=== PATIENT | female | born 1940 | race Caucasian/White ===

== ENCOUNTER 2017-03-01 00:07 | Emergency (ER) | payer MEDICARE, OTHER ==
--- NOTE | 2017-03-01 00:55 | C.PDOC ---
History Of Present Illness Patient took a percocet for her right back /flank pain and developed nausea, vomiting and abdominal pain. feels slightly dizzy. No slurred speech or neurological weakness., Time Seen by Provider: 03/01/17 00:55 Chief Complaint (Nursing): Dizziness/Lightheaded History Per: Patient, Family History/Exam Limitations: no limitations Onset/Duration Of Symptoms: Hrs Current Symptoms Are (Timing): Still Present Severity: Moderate Pain Scale Rating Of: 4 Recent travel outside of the [place]: No Additional History Per: Family - Symptoms Of CVA Recent Aspirin Use: No Current Coumadin Use?: No Recent Head Trauma: No Past Medical History Reviewed: Historical Data, Nursing Documentation, Vital Signs Vital Signs: Last Vital Signs Temp 98.1 F 03/01/17 03:59 Pulse 62 03/01/17 03:59 Resp 16 03/01/17 03:59 BP 163/76 H 03/01/17 03:59 Pulse Ox 96 03/01/17 03:59 - Medical History PMH: HTN - [facility] Procedures INJECT/INFUSE NEC (02/12/14) NON-INVASIVE MECHANICAL VENTILATION (06/20/13) PHYSICAL THERAPY NEC (06/20/13) Family History: States: No Known Family Hx - Social History Hx Alcohol Use: No Hx Substance Use: No Review Of Systems Constitutional: Negative for: Fever, Chills ENT: Negative for: Throat Pain Cardiovascular: Negative for: Chest Pain Respiratory: Negative for: Shortness of Breath Gastrointestinal: Positive for: Nausea, Vomiting, Abdominal Pain Genitourinary: Negative for: Dysuria Musculoskeletal: Positive for: Back Pain Skin: Negative for: Rash, Lesions, Jaundice Neurological: Negative for: Weakness Psych: Negative for: Anxiety Physical Exam - Physical Exam Appears: Non-toxic Skin: Warm, Dry Oral Mucosa: Moist Neck: Supple Chest: Symmetrical Cardiovascular: Rhythm Regular Respiratory: No Rales, No Rhonchi, No Wheezing Gastrointestinal/Abdominal: Soft, No Tenderness, No Distention, No Guarding Back: CVA Tenderness (right) Extremity: Normal ROM Extremity: Bilateral: Atraumatic, Normal Color And Temperature Neurological/Psych: Oriented x3, Normal Speech, Normal Cognition Gait: Steady ED Course And Treatment - Laboratory Results Result Diagrams: 03/01/17 01:14 03/01/17 02:02 O2 Sat by Pulse Oximetry: 97 Pulse Ox Interpretation: Normal - CT Scan/US CT of abd/pelvis w/o contrast Other Rad Studies (CT/US): Read By Radiologist, Radiology Report Reviewed CT/US Interpretation: IMPRESSION: 1. No evidence of pancreatic or peripancreatic inflammatory change. No ductal dilatation. No. calcified gallstones. 2. Numerous hepatic cysts. 3. Diverticulosis. 4. 9 mm right renal lesion. Recommend further evaluation. See above. 5. Remainder of findings as above. Progress Note: blood work, ivf, zofran Reevaluation Time: 04:12 Reassessment Condition: Improved Medical Decision Making Medical Decision Making: Upon provider reevaluation patient is feeling better, is medically stable, and requires no further treatment in the ED at this time. Patient will be discharged home with Rx for zofran and vicodin. Counseling was provided and all questions were answered regarding diagnosis and need for follow up with dr soni. There is agreement to discharge plan. Return if symptoms persist or worsen. Disposition Counseled Patient/Family Regarding: Studies Performed, Diagnosis, Need For Followup, Rx Given - Disposition Referrals: Shaik Soni MD [Staff Provider] - Disposition: HOME/ ROUTINE Disposition Time: 00:55 Condition: FAIR Prescriptions: Ondansetron ODT [Zofran ODT] 4 mg PO TID PRN #10 odt PRN Reason: Nausea/Vomiting Instructions: Flank Pain (ED), Back Pain (ED), Kidney Cyst (ED), Impaired Kidney Function (ED) Print Language: RWANDAN - Clinical Impression Clinical Impression: Back pain, Renal insufficiency, Kidney cysts, Liver cyst
[2017-03-01] MEDS ORDERED: Sodium Chloride 0.9% 1,000 ML IV ONE ×2 (00:59→02:48)
[2017-03-01 01:23] LABS: BASO % 0.4 % (0.0-2.0); EOS # 0.1 K/uL (0.0-0.7); EOS % 0.9 % (0.0-4.0); HEMATOCRIT 37.9 % (34.0-47.0); LYMPH # 1.4 K/uL (1.0-4.3); LYMPH % 20.1 % (20.0-40.0); MEAN CELL VOLUME 88.9 fL (81.0-99.0); MEAN CORPUSCULAR HEMOGLOBIN 28.9 pg (27.0-31.0); MEAN CORPUSCULAR HGB CONC 32.5 g/dL (33.0-37.0); MEAN PLATELET VOLUME 9.4 fL (7.2-11.7); MONO # 0.6 K/uL (0.0-0.8); MONO % 8.6 % (0.0-10.0); RED CELL DISTRIBUTION WIDTH 14.4 % (11.5-14.5); WHITE BLOOD COUNT 6.8 K/uL (4.8-10.8)
[2017-03-01 01:33] LABS: INR 1.1
[2017-03-01 01:43] LABS: RBC URINE 2 /hpf (0-3); URINE BACTERIA RARE (<OCC); URINE BILIRUBIN NEGATIVE (NEGATIVE); URINE BLOOD NEGATIVE (NEGATIVE); URINE COLOR Yellow (YELLOW); URINE GLUCOSE (UA) NORMAL (Normal); URINE HYALINE CAST 0-2 /lpf (0-2); URINE KETONE NEGATIVE (NEGATIVE); URINE LEUKOCYTE ESTERASE 2+ Leu/uL (Negative); URINE PROTEIN NEGATIVE (NEGATIVE); URINE UROBILINOGEN NORMAL mg/dL (0.2-1.0); WBC URINE 4 /hpf (0-5)
[2017-03-01 02:26] LABS: POTASSIUM 5.9 mmol/L (3.6-5.2)
[2017-03-01 02:28] LABS: BILIRUBIN,TOTAL 0.8 mg/dL (0.2-1.3)
[2017-03-01 02:29] LABS: ALB/GLOB RATIO 1.1 (1.0-2.1); CALCIUM 8.7 mg/dl (8.6-10.4); TOTAL PROTEIN 7.4 g/dL (6.3-8.3)
[2017-03-01 04:00] VITALS: RESP 16
[2017-03-01 04:16] VITALS: O2SAT 97
[2017-03-01 04:35] VITALS: BP 146/65; PULSE 58; TEMP 97.9
--- NOTE | 2017-03-01 10:35 | CT ---
PROCEDURE: CT Abdomen and Pelvis without Oral or IV contrast. HISTORY: r flank pain, elevated lipase COMPARISON: Abdominal ultrasound performed 04/09/15 TECHNIQUE: Contiguous axial images of the abdomen and pelvis. No oral or IV contrast administered. Coronal and Sagittal reformats generated and reviewed. Radiation dose: Total exam DLP = 707.25 mGy-cm. FINDINGS: There is limited evaluation of the solid organs without the administration of IV contrast. LOWER THORAX: No visible consolidation, pleural effusion, or pneumothorax. Partially imaged coronary artery calcifications. LIVER: Extensive low-density lesions throughout the liver which appears cystic. Inferior most right hepatic lobe 3.3 x 4.9 cm indeterminate low-density lesion measures approximately 20 Hounsfield units, higher than expected for a cyst. Several of these lesions demonstrate coarse peripheral calcifications. GALLBLADDER AND BILE DUCTS: The gallbladder is not clearly demonstrated ; correlate with surgical history. PANCREAS: Unremarkable unenhanced appearance. SPLEEN: Unremarkable unenhanced appearance. ADRENALS: Bilateral adrenal gland hypertrophy. KIDNEYS AND URETERS: 2 cm indeterminate exophytic left upper pole renal lesion measures approximately 27 Hounsfield units. 9 mm indeterminate and too small to characterize exophytic right lower pole renal lesion. No hydronephrosis or obstructing renal calculus. Probable tiny left parapelvic cysts. BLADDER: The urinary bladder appears unremarkable. REPRODUCTIVE: Uterus is absent, consistent with hysterectomy. APPENDIX: No secondary signs of acute appendicitis. BOWEL: The stomach is nondistended. Lack of oral contrast limits evaluation for bowel pathology. The bowel loops appear within normal limits of caliber without evidence of intestinal obstruction. Diverticulosis without CT evidence of acute diverticulitis. Moderate constipation. PERITONEUM: No significant free fluid. No definite free air. LYMPH NODES: No bulky lymphadenopathy identified. VASCULATURE: Atherosclerotic calcifications of the aorta. BONES: Mild degenerative changes of the spine. OTHER FINDINGS: None. IMPRESSION: 2 cm indeterminate exophytic left upper pole renal lesion measures approximately 27 Hounsfield units ; malignant neoplasm must be excluded. 9 mm indeterminate and too small to characterize exophytic right lower pole renal lesion. Recommend further evaluation with renal ultrasound. Inferior most right hepatic lobe 3.3 x 4.9 cm indeterminate low-density lesion measures approximately 20 Hounsfield units, higher than expected for a cyst. Dedicated cross-sectional imaging recommended for further characterization if not previously performed. Additional multiple low-density lesions throughout the liver appear cystic and several contain coarse peripheral calcifications. Diverticulosis without CT evidence of acute diverticulitis. Moderate constipation. Additional incidental findings as above. Preliminary impression was provided by virtual radiologic. Study has been marked for PA review.
== END 2017-03-01 04:35 | disposition home or self-care (01) ==
LOC: C.ER 00:07
DX: M54.5 Low back pain (principal); N28.9 Disorder of kidney and ureter, unspecified; K76.89 Other specified diseases of liver; N28.1 Cyst of kidney, acquired
CPT/HCPCS: 74176; 80053; 81001; 83690; 85025; 85610; 85730; 96361; 96374; 96375; 99284; J2270; J2405; J7040

== ENCOUNTER 2017-05-08 19:54 | Emergency (ER) | payer MEDICARE, OTHER ==
[2017-05-08 20:39] LABS: EOS # 0.1 K/uL (0.0-0.7); MEAN CELL VOLUME 89.8 fL (81.0-99.0); MONO # 0.6 K/uL (0.0-0.8)
[2017-05-08 20:45] LABS: BASO % 0.6 % (0.0-2.0); EOS % 1.5 % (0.0-4.0); HEMATOCRIT 38.9 % (34.0-47.0); LYMPH # 2.8 K/uL (1.0-4.3); LYMPH % 42.4 % (20.0-40.0); MEAN CORPUSCULAR HEMOGLOBIN 29.4 pg (27.0-31.0); MEAN CORPUSCULAR HGB CONC 32.8 g/dL (33.0-37.0); MEAN PLATELET VOLUME 9.9 fL (7.2-11.7); MONO % 9.1 % (0.0-10.0); RED CELL DISTRIBUTION WIDTH 13.8 % (11.5-14.5); WHITE BLOOD COUNT 6.7 K/uL (4.8-10.8)
[2017-05-08 20:51] LABS: CHLORIDE 106 mmol/L (98-107)
[2017-05-08 20:52] LABS: POTASSIUM 4.6 mmol/L (3.6-5.2); SODIUM 140 mmol/L (132-148)
[2017-05-08 20:54] LABS: ALKALINE PHOSPHATASE 165 U/L (38-126); ALT/SGPT 30 U/L (9-52); AST/SGOT 37 U/L (14-36); BILIRUBIN,TOTAL 0.7 mg/dL (0.2-1.3); BLOOD UREA NITROGEN 26 mg/dL (7-17); CARBON DIOXIDE 24 mmol/L (22-30); GFR AFRICAN-AMERICAN 48; GLUCOSE,RANDOM 93 mg/dL (65-105); TOTAL PROTEIN 7.4 g/dL (6.3-8.3)
[2017-05-08 20:55] LABS: ALCOHOL SERUM < 10 mg/dl (0-10); CALCIUM 9.4 mg/dl (8.6-10.4)
--- NOTE | 2017-05-08 20:58 | C.PDOC ---
History Of Present Illness <YgJames Mata - Last Filed: 05/08/17 20:58> <Ryne Lance - Last Filed: 05/09/17 06:07> Patient is a 77 year old female who presents to the ER with son after she was found lethargic and stating that she wants to kills herself. Patient's son states that he is going through a divorce and states she did not take the news well. The patient had dinner today with her son who reported everything was fine until she took sleeping pills and went into the lethargic state. Patient is currently complaint of generalized body aches, no other physical complaints at this time. (James Ronquillo) History Per: Family History/Exam Limitations: no limitations Onset/Duration Of Symptoms: Hrs Current Symptoms Are (Timing): Still Present Suicide/Self Injury Attempted (Context): None Modifying Factor(s): Other (Xanax) Associated Symptoms: Suicidal Thoughts. denies: Depression, Suicidal Plan Involuntary Hold By: None Recent travel outside of the [place]: No <James Ronquillo - Last Filed: 05/08/17 20:58> <Ryne Lance - Last Filed: 05/09/17 06:07> Time Seen by Provider: 05/08/17 20:25 Chief Complaint (Nursing): Psychiatric Evaluation Past Medical History Reviewed: Historical Data, Nursing Documentation, Vital Signs - Medical History PMH: HTN Surgical History: No Surg Hx Family History: States: Unknown Family Hx - Social History Hx Alcohol Use: No Hx Substance Use: No - Immunization History Hx Tetanus Toxoid Vaccination: No Hx Influenza Vaccination: Yes Hx Pneumococcal Vaccination: Yes <James Ronquillo - Last Filed: 05/08/17 20:58> <Ryne Lance - Last Filed: 05/09/17 06:07> Vital Signs: Last Vital Signs Temp 97.4 F L 05/09/17 05:57 Pulse 55 L 05/09/17 05:57 Resp 18 05/09/17 05:57 BP 124/68 05/09/17 05:57 Pulse Ox 98 05/09/17 05:57 - [facility] Procedures INJECT/INFUSE NEC (02/12/14) NON-INVASIVE MECHANICAL VENTILATION (06/20/13) PHYSICAL THERAPY NEC (06/20/13) Review Of Systems Constitutional: Positive for: Other (Lethargic). Negative for: Fever, Chills Gastrointestinal: Negative for: Nausea, Vomiting Musculoskeletal: Positive for: Other (Body aches) Psych: Positive for: Suicidal ideation <James Ronquillo - Last Filed: 05/08/17 20:58> Physical Exam <James Ronquillo - Last Filed: 05/08/17 20:58> <CammyRyne barahona - Last Filed: 05/09/17 06:07> - Physical Exam Additional Physical Exam Comments: Constitutional: Drowsy but easily arousable. Answers questions appropriately. Head: Normocephalic. Atraumatic. Eyes: PERRL. ENT: Moist mucous membranes. Neck: Supple. Cardiovascular: Regular rate. Radial pulse 2+ bilaterally. Chest: No tenderness. Respiratory: Breathing spontaneously. GI: Soft. Nontender. Nondistended. Back: No CVA tenderness. Musculoskeletal: No tenderness or swelling of extremities. Skin: No rash. Neurologic: Alert, no focal deficit. (YgJames) ED Course And Treatment - Laboratory Results Result Diagrams: 05/08/17 20:30 05/08/17 20:30 O2 Sat by Pulse Oximetry: 99 (Room air) Pulse Ox Interpretation: Normal <James Ronquillo - Last Filed: 05/08/17 20:58> - Laboratory Results Result Diagrams: 05/08/17 20:30 05/08/17 20:30 ECG: Interpreted By Me, Viewed By Me ECG Rhythm: Sinus Rhythm (61), Nonspecific Changes (occ pvc) Pulse Ox Interpretation: Normal - Radiology CXR: Interpreted by Me, Viewed By Me CXR Interpretation: No: Infiltrates, Fracture, Pnemothorax Progress Note: pt medically cleared for transfer to geriatric psych <CasiRyne - Last Filed: 05/09/17 06:07> Medical Decision Making <James Ronquillo - Last Filed: 05/08/17 20:58> <CasiRyne - Last Filed: 05/09/17 06:07> Medical Decision Making: Plan: * Urinalysis (James Ronquillo) Disposition <James Ronquillo - Last Filed: 05/08/17 20:58> Counseled Patient/Family Regarding: Studies Performed, Diagnosis - Disposition Disposition Time: 01:00 <CasiRyne - Last Filed: 05/09/17 06:07> - Disposition Condition: UNKNOWN - Clinical Impression Clinical Impression: Depression - Scribe Statement The provider has reviewed the documentation as recorded by the Scribe <James Ronquillo - Last Filed: 05/08/17 20:58> <Ryne Lance - Last Filed: 05/09/17 06:07> - Scribe Statement Joaquim Alejandra All medical record entries made by the Scribe were at my direction and personally dictated by me. I have reviewed the chart and agree that the record accurately reflects my personal performance of the history, physical exam, medical decision making, and the department course for this patient. I have also personally directed, reviewed, and agree with the discharge instructions and disposition. (James Ronquillo) Physician Patient Turnover Patient Signed Over To: Odilon Christian DO Handoff Comments: pending bed availability at [facility] <Ryne Lance - Last Filed: 05/09/17 06:07>
[2017-05-08 21:13] LABS: RBC URINE < 1 /hpf (0-3); URINE BACTERIA RARE (<OCC); URINE BILIRUBIN NEGATIVE (NEGATIVE); URINE BLOOD NEGATIVE (NEGATIVE); URINE COLOR Straw (YELLOW); URINE GLUCOSE (UA) NORMAL (Normal); URINE KETONE NEGATIVE (NEGATIVE); URINE LEUKOCYTE ESTERASE TRACE Leu/uL (Negative); URINE PROTEIN NEGATIVE (NEGATIVE); URINE UROBILINOGEN NORMAL mg/dL (0.2-1.0); WBC URINE 1 /hpf (0-5)
[2017-05-09 07:31] VITALS: BP 141/53; PULSE 64; RESP 16; TEMP 97.3; O2SAT 100
--- NOTE | 2017-05-09 09:06 | RAD ---
PROCEDURE: CHEST RADIOGRAPH, 1 VIEW HISTORY: crisis COMPARISON: 10/12/2014 FINDINGS: LUNGS: Clear. PLEURA: No pneumothorax or pleural fluid seen. CARDIOVASCULAR: Normal. OSSEOUS STRUCTURES: No significant abnormalities. VISUALIZED UPPER ABDOMEN: Normal. OTHER FINDINGS: None. IMPRESSION: No active disease.
--- NOTE | 2017-05-10 14:24 | CARD ---
APPROVED REPORT EKG Measurement Heart [id number] ID [id number] <Conclusion> Sinus rhythm with occasional premature ventricular complexes Otherwise normal ECG
== END 2017-05-09 07:50 | disposition short-term general hospital (02) ==
LOC: C.ER 19:54
DX: F32.9 Major depressive disorder, single episode, unspecified (principal); I10 Essential (primary) hypertension
CPT/HCPCS: 71010; 80053; 81001; 85025; 93005; 99285; G0480

== ENCOUNTER 2017-06-18 08:18 | Day surgery (SDC) | payer MEDICARE, OTHER ==
[2017-06-12 12:07] VITALS: BMI 31.2
[2017-06-18] MEDS ORDERED: Lactated Ringer's 1,000 ML IV ONE (11:15)
[2017-06-18] MEDS ORDERED: Propofol 10 mg/ml Inj (20 ML) ONE (11:21)
[2017-06-18] MEDS ORDERED: Doxycycline 100 mg Inj ONE (11:22)
[2017-06-18] MEDS ORDERED: Lidocaine 1% Inj (20ml) ONE (11:22)
[2017-06-18] MEDS ORDERED: Bupivacaine HCl 0.25% PF (10 ml) Inj ONE (11:22)
[2017-06-18] MEDS ORDERED: Morphine 4 MG/ML VIAL IVP PRN (11:41)
[2017-06-18] MEDS ORDERED: Oxycodone/Acetaminophen 5/325 mg Tab PO PRN (11:51)
[2017-06-18 12:04] VITALS: O2SAT 100
[2017-06-18 13:08] VITALS: BP 148/51; PULSE 56; RESP 18; TEMP 98
--- NOTE | 2017-06-18 23:16 | OP ---
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 PROCEDURE PERFORMED: Wide and deep excision of soft tissue tumor of the left ankle with hemangioma and adjacent tissue transfer closure. SURGEON: Charles Blackmon MD TYPE OF ANESTHESIA: . ESTIMATED BLOOD LOSS: 30 mL POSTOPERATIVE CONDITION: Stable. INDICATION FOR SURGERY: This is a 77-year-old female with a history of a painful mass on her left ankle now undergo wide and deep excision. DESCRIPTION OF PROCEDURE: The patient was taken to the operating room, IV sedation was administered and the left ankle medially was prepped and draped. A generous elliptical incision was made surrounding the mass. It was dissected through the facial layer and removed. Bleeding was controlled using the Bovie. A large blood vessel was spared. The wound was irrigated with saline. Generous tissue flaps were raised using the Bovie greater than 30 cm. Adjacent tissue transfer closure was performed using multiple layers of Monocryl, subcuticular Monocryl, and glue. The patient tolerated the procedure well and returned to recovery room in stable condition. Charles Blackmon MD
--- NOTE | 2017-06-19 05:50 | OP ---
PROCEDURE DATE: 06/18/2017 PREOPERATIVE DIAGNOSIS: Painful fasciotomy soft tissue tumor of the left ankle. POSTOPERATIVE DIAGNOSIS: Painful fasciotomy soft tissue tumor of the left ankle. PROCEDURE PERFORMED: 1. Wide deep excision (radical resection) of *------* soft tissue tumor of the left ankle (95887). 2. Adjacent tissue transfer closure greater than 30 sq cm ([id number]). SURGEON: Dr. Blackmon. ANESTHESIA: General. BLOOD LOSS: 12 mL. POSTOP CONDITION: Stable. INDICATIONS FOR SURGERY: This is a 77-year-old female with a painful mass of her left ankle and now undergoing wide deep excision. PROCEDURE: The patient was taken to the operating room, IV sedation was administered was administered and the left ankle was prepped and draped. Local anesthesia was administered and a generous elliptical incision was made surrounding the 5 cm mass down to the facial layer. Bleeding was controlled using the Bovie. The mass was completely excised and sent for specimen. Generous tissue flaps were raised using the Bovie and adjacent tissue transverse closure greater than 30 sq cm was performed using multiple layers of heavy Monocryl, subcuticular Monocryl, and glue. The patient tolerated the procedure well and returned to the recovery room in stable condition. Charles Blackmon MD
== END 2017-06-18 13:26 | disposition home or self-care (01) ==
LOC: C.SDS 08:18
PROVIDERS: ATTEND Surgery
DX: D48.7 Neoplasm of uncertain behavior of other specified sites (principal); D18.01 Hemangioma of skin and subcutaneous tissue
CPT/HCPCS: 11406; 82948; 88307; J2704; J3010; J7120

== ENCOUNTER 2017-07-03 17:35 | Emergency (ER) | payer MEDICARE, OTHER ==
[2017-07-03 17:48] VITALS: BMI 32.0
[2017-07-03 17:51] VITALS: BP 155/71; PULSE 63; RESP 18; TEMP 98.4; O2SAT 96
[2017-07-03] MEDS ORDERED: Enoxaparin 80 mg Syringe SC STA (18:16)
--- NOTE | 2017-07-03 18:20 | C.PDOC ---
History Of Present Illness 77 y/o female with Hx of HTN sent to ED from PMD Dr. Moreira for evaluation of left leg swelling. Patient s/p left ankle surgery on 06/18/17 for removal of mass. Patient denies fever, recent injury, numbness or any other complaints at this time. Time Seen by Provider: 07/03/17 18:15 Chief Complaint (Nursing): Lower Extremity Problem/Injury History Per: Patient History/Exam Limitations: no limitations Onset/Duration Of Symptoms: Days Current Symptoms Are (Timing): Still Present Past Medical History Reviewed: Historical Data, Nursing Documentation, Vital Signs Vital Signs: Last Vital Signs Temp 98.4 F 07/03/17 17:47 Pulse 63 07/03/17 17:47 Resp 18 07/03/17 17:47 BP 155/71 H 07/03/17 17:47 Pulse Ox 96 07/03/17 18:24 - Medical History PMH: Colonic Polyps, Depression (Pt presently under psychiatric care. Feeling better.), Gall Bladder Disease, HTN, Peripheral Edema, Pneumonia (x2-3years ago and 10 years ago), Chronic Kidney Disease (Pt states renal cysts) Surgical History: Cholecystectomy - [facility] Procedures GROUP PSYCHOTHERAPY (05/09/17) INDIVIDUAL PSYCHOTHERAPY, COGNITIVE-BEHAVIORAL (05/09/17) INJECT/INFUSE NEC (02/12/14) NON-INVASIVE MECHANICAL VENTILATION (06/20/13) PHYSICAL THERAPY NEC (06/20/13) Family History: States: Unknown Family Hx - Social History Hx Alcohol Use: No Hx Substance Use: No - Immunization History Hx Tetanus Toxoid Vaccination: No Hx Influenza Vaccination: Yes Hx Pneumococcal Vaccination: Yes Review Of Systems Except As Marked, All Systems Reviewed And Found Negative. Constitutional: Negative for: Fever Musculoskeletal: Positive for: Foot Pain Neurological: Negative for: Numbness Physical Exam - Physical Exam Additional Physical Exam Comments: Constitutional: No acute distress. Head: Normocephalic. Atraumatic. Eyes: PERRL. ENT: Moist mucous membranes. Neck: Supple. Cardiovascular: Regular rate. Radial pulse 2+ bilaterally. Chest: No tenderness. Respiratory: Clear to auscultation bilaterally. GI: Soft. Nontender. Nondistended. Back: No CVA tenderness. Musculoskeletal: Bilateral feet equally warm. DP 2+ bilateral. No skin discoloration bilateral. Pt moves digits and ankle Left calf firmer than Right. Medial surgery scar on left ankle Skin: No rash. Neurologic: Alert, no focal deficit. ED Course And Treatment O2 Sat by Pulse Oximetry: 96 (RA) Pulse Ox Interpretation: Normal Medical Decision Making Medical Decision Making: Venous doppler not available at this time. Will treat with Lovenox and have patient return for doppler studies. Patient without ischemic foot, no indication for emergent arterial doppler. Disposition - Disposition Disposition: HOME/ ROUTINE Disposition Time: 18:26 Condition: STABLE Additional Instructions: Return to the ER tomorrow morning for your leg studies. Instructions: Deep Venous Thrombosis (ED) Forms: [employer] (Indonesian) - Clinical Impression Clinical Impression: Leg swelling - PA / PUBLIC RELATIONS CONSULTANT / Resident Statement MD/DO has examined the patient and agrees with the treatment plan. - Scribe Statement The provider has reviewed the documentation as recorded by the Jenniferibreba Bustamante All medical record entries made by the Scribreba were at my direction and personally dictated by me. I have reviewed the chart and agree that the record accurately reflects my personal performance of the history, physical exam, medical decision making, and the department course for this patient. I have also personally directed, reviewed, and agree with the discharge instructions and disposition.
[2017-07-03] MEDS ORDERED: Enoxaparin 80 mg Syringe ONE (18:40)
== END 2017-07-03 18:57 | disposition home or self-care (01) ==
LOC: C.ER 17:35
DX: M79.89 Other specified soft tissue disorders (principal)
CPT/HCPCS: 96372; 99283; J1650

== ENCOUNTER 2017-07-04 08:46 | Emergency (ER) | payer MEDICARE, OTHER ==
[2017-07-04 08:46] VITALS: BMI 32.0
[2017-07-04 08:50] VITALS: TEMP 98
--- NOTE | 2017-07-04 09:02 | C.PDOC ---
History Of Present Illness FOR DOPPLER L LEG. SEEN 07/03 FOR SAME BUT NO VASC AVAIL DURING THAT ER EVAL. S/ P LOVENOX. PS SWELLING LOWER L LEG SINCE 06/18 S/P L LEG MASS REMOVAL. DENIES CP , SOB, MCGEE, OTHER ASSOC SX. EXAM NAD APPEARS COMFORTABLE EXT MILD SWELLING DISTAL TO WOUND SITE. NO CALF SWELL, NONTEND NARD SKIN POST OP WOUND L LOWER LEG Chief Complaint (Nursing): Lower Extremity Problem/Injury History Per: Patient History/Exam Limitations: no limitations Onset/Duration Of Symptoms: Days Current Symptoms Are (Timing): Still Present Recent travel outside of the [place]: No Past Medical History Reviewed: Historical Data, Nursing Documentation, Vital Signs Vital Signs: Last Vital Signs Temp 98 F 07/04/17 08:49 Pulse 58 L 07/04/17 08:49 Resp 18 07/04/17 08:49 BP 165/74 H 07/04/17 08:49 Pulse Ox 97 07/04/17 09:55 - Medical History PMH: Colonic Polyps, Depression (Pt presently under psychiatric care. Feeling better.), Gall Bladder Disease, HTN, Peripheral Edema, Pneumonia (x2-3years ago and 10 years ago), Chronic Kidney Disease (Pt states renal cysts) Surgical History: Cholecystectomy - [facility] Procedures GROUP PSYCHOTHERAPY (05/09/17) INDIVIDUAL PSYCHOTHERAPY, COGNITIVE-BEHAVIORAL (05/09/17) INJECT/INFUSE NEC (02/12/14) NON-INVASIVE MECHANICAL VENTILATION (06/20/13) PHYSICAL THERAPY NEC (06/20/13) Family History: States: Unknown Family Hx - Social History Hx Alcohol Use: No Hx Substance Use: No - Immunization History Hx Tetanus Toxoid Vaccination: No Hx Influenza Vaccination: Yes Hx Pneumococcal Vaccination: Yes Review Of Systems Except As Marked, All Systems Reviewed And Found Negative. Constitutional: Negative for: Fever, Chills Cardiovascular: Negative for: Chest Pain, Palpitations Respiratory: Negative for: Cough, Shortness of Breath, Wheezing Skin: Negative for: Rash Neurological: Negative for: Weakness, Numbness Physical Exam - Physical Exam Appears: Non-toxic, Other (COMFORTABLE, NO ACUTE RESPIRATORY DISTRESS) Skin: Warm, Dry Head: Atraumatic, Normacephalic Neck: Normal ROM, Supple Chest: Symmetrical Cardiovascular: Rhythm Regular Respiratory: Normal Breath Sounds, No Accessory Muscle Use, No Rales, No Rhonchi , No Wheezing Gastrointestinal/Abdominal: Soft, No Tenderness Back: Normal Inspection Extremity: Normal ROM, No Tenderness, No Calf Tenderness, Capillary Refill, No Deformity, Other (SKIN POST OP WOUND L LOWER LEG. MILD SWELLING DISTAL TO WOUND SITE. NO CALF SWELLING. ) Extremity: Bilateral: Normal Color And Temperature Neurological/Psych: Oriented x3, Normal Speech, Normal Cognition, Normal Motor, Normal Sensation ED Course And Treatment O2 Sat by Pulse Oximetry: 97 (RA) Pulse Ox Interpretation: Normal - CT Scan/US L LEG Other Rad Studies (CT/US): Radiology Report Reviewed (TECH REPORT: NEG DVT) Reevaluation Time: 10:35 Reassessment Condition: Unchanged (ADVISED FU PMD) Disposition Counseled Patient/Family Regarding: Studies Performed, Diagnosis, Need For Followup - Disposition Referrals: YOUR,PMD [Other] Disposition: HOME/ ROUTINE Disposition Time: 10:35 Condition: IMPROVED Additional Instructions: LOMBARDI PRUEBA DE DOPPLER ES NORMAL. SEGUIMIENTO CON LOMBARDI PMD. Instructions: Leg Edema (ED) Forms: [employer] (Mongolian) Print Language: HEBREW - Clinical Impression Clinical Impression: Leg swelling - Scribe Statement The provider has reviewed the documentation as recorded by the Scribe SM All medical record entries made by the Scribe were at my direction and personally dictated by me. I have reviewed the chart and agree that the record accurately reflects my personal performance of the history, physical exam, medical decision making, and the department course for this patient. I have also personally directed, reviewed, and agree with the discharge instructions and disposition.
[2017-07-04 10:43] VITALS: BP 157/78; PULSE 50; RESP 20; O2SAT 98
--- NOTE | 2017-07-04 11:46 | VASCLAB ---
PROCEDURE: Left Lower Extremity Venous Duplex Exam. HISTORY: Swelling PRIORS: None. TECHNIQUE: Left common femoral, femoral, popliteal and posterior tibial, peroneal and great saphenous veins were evaluated. Flow was assessed with color Doppler, compressibility, assessment of phasic flow and augmentation response. Report prepared by BRENDA Nagel FINDINGS: LEFT: 1. Common Femoral Vein: 1.1. Compressibility - Fully compressible: Thrombus - None : Flow - Phasic: Augmentation -Normal: Reflux - None. 2. Femoral Vein: 2.1. Compressibility - Fully compressible: Thrombus - None: Flow - Phasic: Augmentation -Normal: Reflux - None. 3. Popliteal Vein: 3.1. Compressibility - Fully compressible: Thrombus - None: Flow - Phasic: Augmentation -Normal: Reflux - None. 4. Posterior Tibial Vein: 4.1. Compressibility - Fully compressible: Thrombus - None: Flow - Phasic: Augmentation -Normal: Reflux - None. 5. Peroneal Vein: 5.1. Compressibility - Fully compressible: Thrombus - None: Flow - Phasic: Augmentation -Normal: Reflux - None. 6. Great Saphenous Vein: 6.1. Compressibility - Fully compressible: Thrombus - None: Flow - Phasic: Augmentation - Normal: Reflux - None. OTHER FINDINGS: IMPRESSION: No evidence of deep or superficial vein thrombosis of the left lower extremity with excellent venous flow. Normal valve function noted of the left side. Normal venous flow noted in the right common femoral vein.
== END 2017-07-04 11:02 | disposition home or self-care (01) ==
LOC: C.ER 08:46
DX: M79.89 Other specified soft tissue disorders (principal)